=== PATIENT | male | born 1970 | race Caucasian/White ===

== ENCOUNTER 2023-10-06 16:03 | Emergency (ER) | payer SELFPAY ==
[2023-10-06 16:06] VITALS: BP 146/94
[2023-10-06 16:25] LABS: % Basophils 1.2 % (0-2); % Immature Granulocytes 0.2 % (0-0.5); % Lymphocytes 31.7 % (20.5-51.1); % Monocytes 11.1 % (1.7-9.3); % Neutrophils 53.8 % (42.2-75.2); Absolute Basophils 0.1 10^3/uL (0-0.2); Absolute Eosinophils 0.1 10^3/uL (0-0.7); Absolute Lymphocytes 1.3 10^3/uL (1.2-3.4); Absolute Monocytes 0.5 10^3/uL (0.1-0.6); Absolute Neutrophils 2.2 10^3/uL (1.4-6.5); Hematocrit 38.3 % (39.0-52.0); Hemoglobin 13.5 g/dL (13.0-18.0); Mean Corp Hgb Conc. 35.2 g/dL (33.0-37.0); Mean Corpuscular Hgb 31.2 pg (27.0-31.0); Mean Corpuscular Volume 88.5 fL (80.0-94.0); Mean Platelet Volume 9.4 fL (7.4-10.4); Nucleated Red Blood Cells % 0 % (-); Platelet Count 158 10^3/uL (130-400); Red Blood Cell Count 4.33 10^6/uL (4.70-6.10); Red Cell Dist. Width 14.4 % (11.5-14.5); White Blood Cell Count 4.1 10^3/uL (4.8-10.8)
[2023-10-06 16:40] LABS: ALT (SGPT) 16 U/L (0-50); AST (SGOT) 22 U/L (17-59); Albumin 4.5 g/dl (3.5-5.0); Alkaline Phosphatase 49 U/L (38-126); Blood Urea Nitrogen 14 mg/dl (9-20); Calcium 9.4 mg/dl (8.4-10.2); Carbon Dioxide 26 mmol/L (22-30); Chloride 103 mmol/L (98-107); Glucose 105 mg/dl (70-99); Potassium 3.7 mmol/L (3.5-5.1); Sodium 136 mmol/L (135-145); Total Bilirubin 0.8 mg/dl (0.2-1.3); Total Protein 7.2 g/dl (6.3-8.2); eGFR > 60.00
[2023-10-06 17:35] VITALS: BMI 28.7
--- NOTE | 2023-10-06 19:03 | ED.GENMED ---
History of Present Illness
General
Chief Complaint: Abdominal Symptoms
Time Seen by Provider: 10/06/23 18:43
Travel History
Have you had any contact with someone who has COVID-19?: No
Do you have any symptoms of coronavirus? Fever > 100 degrees, chills, cough, shortness of breath, sore throat, loss of taste or smell, muscle aches, or headache?: No
History of Present Illness
History of Present Illness:
53-year-old male who presents to the emergency department for evaluation of a presumed hernia to the left groin. He has had this ongoing for the past several weeks to months. He states that occasionally the hernia feels firm but ultimately he is
always able to reduce this. He has had an incarcerated inguinal hernia on the right that required surgery. He has not contacted his surgeon for follow-up.
Past History
Past History
ED Past Medical History: Psychiatric (Multiple overdoses) and Other (hiatal hernia with dysphagia)
ED Past Surgical History: Other (dental, hernia repair in 2019.)
Social History
Tobacco: Former smoker
Alcohol: Occasional
Drug: None and Narcotics
Personal:
Living: with family
Employment: Not employed
Review of Systems
Review of Systems
Allergies reviewed?: Yes
All Other Systems: ROS reviewed and negative except as documented in HPI and ROS
Phy Exam
Physical Exam
Physical Exam:
GEN: Well appearing, NAD, WDWN
HEENT: Oral mucosa moist, no scleral icterus
Cardiac: Regular rate
Lung: No respiratory distress, no tachypnea
Abdomen: Significant extra skin tissue, there is a easily reducible large left inguinal hernia
MSK: No gross deformity or injuries
Skin: Good color, no pallor or jaundice, no rashes
Neuro: AO x3, moves all extremities freely
Psych: Calm, cooperative
Course
Orders/Labs/Results
Orders:
Orders
10/06/23 16:13
CMP [Comprehensive Metabolic Panel] Urgent
Complete Blood Count/With Diff Urgent
Abnormal Lab Results
10/06/23
16:13
WBC 4.1 L 10^3/uL
(4.8-10.8)
RBC 4.33 L 10^6/uL
(4.70-6.10)
Hct 38.3 L %
(39.0-52.0)
MCH 31.2 H pg
(27.0-31.0)
Monocytes % 11.1 H %
(1.7-9.3)
Glucose 105 H mg/dl
(70-99)
10/06/23 16:13
10/06/23 16:13
Vital Signs
Initial and Last Documented VS:
Initial Vital Signs
Temp Pulse Resp BP Pulse Ox
98.3 F 95 18 146/94 98
10/06/23 16:06 10/06/23 16:06 10/06/23 16:06 10/06/23 16:06 10/06/23 16:06
Last Documented Vital Signs
Temp Pulse Resp BP Pulse Ox
98.3 F 95 18 146/94 98
10/06/23 16:06 10/06/23 16:06 10/06/23 16:06 10/06/23 16:06 10/06/23 16:06
MDM/Problems Addressed
MDM/Problems Addressed:
No signs of incarceration or strangulation. Outpatient surgical follow-up advised
*Critical Care Note
Total Time (30-74mins, 75-104mins- exclusive of procedures): Not Applicable
ED Attending Note
-
Portions of this chart may have been created with voice recognition software.� Occasional wrong word or��sound alike� substitutions may have occurred due to the inherent limitations of voice recognition software.
Discharge Plan
Departure
Patient Disposition: Home (Routine Discharge)
Date of Disposition: 10/06/23
Time of Disposition: 19:03
Patient with high blood pressure during this ER visit?: Yes
Discharge Problem:
Inguinal hernia, left
Instructions: Groin Hernia (DC)
Prescriptions:
No Action
Vitamin Beverage
1 dose PO BID
Referrals:
Bro Putnam DO [Family Provider] -
Paulo Gambino MD [Active] -
Interventions
Interventions:
*Risk Screen - Suicide Last Done: 10/06/23 16:09
*General Assessment Last Done: 10/06/23 16:06
*Neglect/Abuse Screening Last Done: 10/06/23 16:06
ED- Fall Risk Assessment Last Done: 10/06/23 17:35
*ED COVID-19 Vaccine History Last Done: 10/06/23 17:35
*Nursing Disposition Last Done: 10/06/23 19:08
JC-Ngkhzz-Dmyhgseqkw Assessment Last Done: 10/06/23 17:35
Discharge Date and Time
Discharge Date/Time: 10/06/23 19:08
== END 2023-10-06 19:08 | disposition home or self-care (01) ==
LOC: EMR 16:03
PROVIDERS: EMERGENCY PHYSICIAN Emergency Medicine; FAMILY PHYSICIAN Family Medicine
DX: K40.90 Unilateral inguinal hernia, without obstruction or gangrene, not specified as recurrent (principal); Z87.891 Personal history of nicotine dependence
CPT/HCPCS: 99283; 80053; 85025

== ENCOUNTER 2023-12-12 06:22 | Day surgery (SDC) | payer SELFPAY ==
[2023-12-01 14:07] VITALS: BMI 24.3
[2023-12-01 14:19] LABS: Hematocrit 36.5 % (39.0-52.0); Hemoglobin 12.3 g/dL (13.0-18.0); Mean Corp Hgb Conc. 33.7 g/dL (33.0-37.0); Mean Corpuscular Hgb 30.7 pg (27.0-31.0); Platelet Count 205 10^3/uL (130-400); Red Blood Cell Count 4.01 10^6/uL (4.70-6.10); Red Cell Dist. Width 14.8 % (11.5-14.5); White Blood Cell Count 4.7 10^3/uL (4.8-10.8)
[2023-12-01 15:25] LABS: Blood Urea Nitrogen 19 mg/dl (9-20); Calcium 9.5 mg/dl (8.4-10.2); Carbon Dioxide 28 mmol/L (22-30); Chloride 99 mmol/L (98-107); Estimated Creatinine Clearance > 125 ml/min; Glucose 76 mg/dl (70-99); Sodium 137 mmol/L (135-145); eGFR > 60.00
--- NOTE | 2023-12-02 13:57 | PTCARENOTE ---
Patients 12/01/23 EKG abnormal- reviewed by Dr. Martin-no additional interventions required.
[2023-12-12] VITALS (8 sets, daily range): BP systolic 103–132; BP diastolic 70–80; BMI 24.3
[2023-12-12] MEDS: TYLENOL 1000 MG PO (11:27)
[2023-12-12] MEDS: NORMOSOL-R 1000 IV (11:27)
== END 2023-12-12 16:15 | disposition home or self-care (01) ==
LOC: SDS 06:22
PROVIDERS: ATTENDING PHYSICIAN Surgery; FAMILY PHYSICIAN Family Medicine
DX: K40.90 Unilateral inguinal hernia, without obstruction or gangrene, not specified as recurrent (principal)
CPT/HCPCS: 49650; 36415; 80048; 85027; 93005; C1781

== ENCOUNTER → 2025-04-28 13:28 | Outpatient (REF) | payer OTHER, SELFPAY | LOC: RAD 13:28 | PROVIDERS: ATTENDING PHYSICIAN Internal Medicine | DX: M25.462 Effusion, left knee (principal) | CPT/HCPCS: 73564 ==